=== PATIENT | female | born 1970 | race Caucasian/White ===

== ENCOUNTER → 2017-04-16 | Day surgery (SDC) | payer OTHER ==
--- NOTE | 2017-04-20 10:06 | PATH ---
Surgical Pathology Report Patient Name: LACI PIERRE [facility]. Rec. #: [id number] /Age/Gender: 1970 (Age: 46) / F Account: [id number] Location: [facility] Taken: 04/16/2017 Received: 04/16/2017 Reported: 04/20/2017 Physicians: Toney Diallo M.D. Specimen(s) Received A: LEFT BREAST WITH CALCIFICATIONS STEREOTACTIC BIOPSY B: LEFT BREAST WITHOUT CALCIFICATIONS STEREOTACTIC BIOPSY C: RIGHT BREAST WITH CALCIFICATIONS STEREOTACTIC BIOPSY D: RIGHT BREAST WITHOUT CALCIFICATIONS STEREOTACTIC BIOPSY Clinical History Microcalcifications, suspicious Final Diagnosis A. LEFT BREAST, WITH CALCIFICATION, STEREOTACTIC NEEDLE CORE BIOPSY: BENIGN BREAST TISSUE WITH FIBROCYSTIC CHANGES INCLUDING USUAL DUCTAL HYPERPLASIA (UDH), COLUMNAR CELL CHANGE, STROMAL FIBROSIS, DUCTAL DILATATION, CYSTIC APOCRINE METAPLASIA, AND ASSOCIATED CALCIFICATION. B. LEFT BREAST, WITHOUT CALCIFICATION, STEREOTACTIC NEEDLE CORE BIOPSY: BENIGN BREAST TISSUE WITH FIBROCYSTIC CHANGES INCLUDING STROMAL FIBROSIS, DUCTAL DILATATION, AND CYSTIC APOCRINE METAPLASIA. C. RIGHT BREAST, WITH CALCIFICATION, STEREOTACTIC NEEDLE CORE BIOPSY: BENIGN BREAST TISSUE WITH FIBROCYSTIC CHANGES INCLUDING STROMAL FIBROSIS, DUCTAL DILATATION, AND CYSTIC METAPLASIA. RARE MICROCALCIFICATIONS ARE IDENTIFIED. D. RIGHT BREAST, WITHOUT CALCIFICATION, STEREOTACTIC NEEDLE CORE BIOPSY: BENIGN BREAST TISSUE WITH FIBROCYSTIC CHANGES INCLUDING STROMAL FIBROSIS AND DUCTAL DILATATION Electronically Signed Dawson Rodriguez M.D. Gross Description A. Received in formalin, labeled "left breast with calcifications" are five cores of light ho and yellow ho soft tissue ranging from 1.4-2.2 cm in length with a diameter of 0.3 cm. Entirely submitted in two cassettes. B. Received in formalin, labeled "left breast without calcifications" are two cores of light ho and yellow ho soft tissue ranging from 1.2-1.5 cm in length with a diameter of 0.3 cm. Entirely submitted in one cassette. Time to formalin fixation: 5 minutes Total formalin fixation time: approximately 10 hours C. Received in formalin, labeled "right breast with calcifications" are five cores of light ho and yellow ho soft tissue ranging from 0.5-1.5 cm in length with a diameter of 0.3 cm. Entirely submitted in two cassettes. D. Received in formalin, labeled "right breast without calcifications" are three cores of light ho and yellow ho soft tissue ranging from 1.2-1.3 cm in length with a diameter of 0.3 cm. Entirely submitted in one cassette. Time to formalin fixation: 5 minutes Total formalin fixation time: approximately 9 hours [facility]/04/17/2017
== END | disposition home or self-care (01) ==
LOC: FMAMMOTONE 10:04
PROVIDERS: ATTEND Surgery Surgical Oncology
PROC: 0HBV3ZX Excision of Bilateral Breast, Percutaneous Approach, Diagnostic (ICD-10-PCS; principal; 2017-04-16)
DX: N60.32 Fibrosclerosis of left breast (principal); R92.1 Mammographic calcification found on diagnostic imaging of breast; N60.82 Other benign mammary dysplasias of left breast; N60.31 Fibrosclerosis of right breast; N64.89 Other specified disorders of breast
CPT/HCPCS: 19081; 19082; 87899; 88305-TC; A4648

== ENCOUNTER 2018-02-21 15:34 | Emergency (ER) | payer OTHER ==
[2018-02-21 15:42] VITALS: BP 150/90; PULSE 77; TEMP 97; BMI 35.5
[2018-02-21] MEDS ORDERED: KETOROLAC TROMETHAMINE 60 MG/2 ML VIAL IM ONE (16:08)
[2018-02-21] MEDS ORDERED: CYCLOBENZAPRINE HCL 10 MG TABLET (FP) PO ONE (16:08)
[2018-02-21] MEDS ORDERED: KETOROLAC TROMETHAMINE 60 MG/2 ML VIAL ONE (16:13)
[2018-02-21] MEDS ORDERED: CYCLOBENZAPRINE HCL 10 MG TABLET (FP) ONE (16:13)
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
== END 2018-02-21 16:45 | disposition home or self-care (01) ==
LOC: JERFT 15:34
PROC: 3E0233Z Introduction of Anti-inflammatory into Muscle, Percutaneous Approach (ICD-10-PCS; principal; 2018-02-21)
DX: S16.1XXA Strain of muscle, fascia and tendon at neck level, initial encounter (principal); V43.52XA Car driver injured in collision with other type car in traffic accident, initial encounter; Y92.414 Local residential or business street as the place of occurrence of the external cause; Y93.89 Activity, other specified; Y99.8 Other external cause status
CPT/HCPCS: 99281-25

== ENCOUNTER 2023-01-22 04:19 | Day surgery (SDC) | payer BC ==
[2023-01-21 09:00] VITALS: BMI 38.9
[2023-01-22 10:34] VITALS: BP 125/83; PULSE 65; RESP 18; TEMP 98
== END 2023-01-22 10:30 | disposition home or self-care (01) ==
LOC: JASU-ENDO 04:19
PROVIDERS: ATTEND Internal Medicine Gastroenterology
PROC: 0DBL8ZX Excision of Transverse Colon, Via Natural or Artificial Opening Endoscopic, Diagnostic (ICD-10-PCS; principal; 2023-01-22 08:45)
DX: Z12.11 Encounter for screening for malignant neoplasm of colon (principal); D12.3 Benign neoplasm of transverse colon; K57.30 Diverticulosis of large intestine without perforation or abscess without bleeding; K64.8 Other hemorrhoids; I10 Essential (primary) hypertension
CPT/HCPCS: 88305-TC